=== PATIENT | female | born 1995 | race Caucasian/White ===

== ENCOUNTER 2021-10-29 02:38 | Emergency (ER) | payer OTHER ==
[~2021-10-29] VITALS: Ht 177.8 cm; Wt 78.2 kg
[~2021-10-29 02:38] MED LIST: AMOXICILLIN 50500 MG PO; BACTRIM DS 8001 TAB PO; BIRTH CONTROL PILLS; CEPHALEXIN500 M1 PO; MIRENA52 MG IY; NECON 1/50 0.051 TAB PO; NORCO 325 MG-51 TAB PO; PERCOCET 325 MG1 TA2 PO; PRENATAL1 TA1 PO; ULTRAM 50MG TAB50 MG PO; ZOFRAN 4MG T4 MG/TAB PO; [UNRECOGNIZED DRUG - OTHER]
[2021-10-29 03:01] VITALS: TEMP 98.2
[2021-10-29 03:07] LABS: COLLECTION METHOD CLEAN CATCH
[2021-10-29 03:14] LABS: MUCOUS Present (NOT PRESENT); PH 6 (5-8); SQUAMOUS EPITHELIAL 0-2 /hpf (0-10); URINE APPEARANCE Clear (CLEAR/HAZY); URINE BACTERIA None Seen /hpf (NONE SEEN); URINE BILIRUBIN Negative (NEGATIVE); URINE BLOOD Negative (NEGATIVE); URINE COLOR Straw (YELLOW); URINE GLUCOSE Negative (NEGATIVE); URINE KETONE Negative (NEGATIVE); URINE LEUKOCYTE ESTERASE Negative (NEGATIVE); URINE NITRATE Negative (NEGATIVE); URINE PROTEIN(semi-quant) Negative (NEGATIVE); URINE UROBILINOGEN Negative (NEGATIVE)
[2021-10-29 03:50] LABS: BASO # 0.1 K/mm3 (0.0-0.2); BASO % 0.5 % (0.0-2.0); EOS # 0.4 K/mm3 (0.0-0.7); EOS % 2.2 % (0.0-4.0); GRAN % 79.3 % (42.2-75.2); HEMOGLOBIN 12.5 g/dl (12.5-16.0); LYMPH # 1.8 K/mm3 (1.2-3.4); LYMPH % 10.9 % (20.0-51.0); MEAN CELL VOLUME 88 fl (80.0-100.0); MEAN CORPUSCULAR HEMOGLOBIN 30 pg (27-31); MEAN CORPUSCULAR HGB CONC 34 g/dl (33.0-37.0); MEAN PLATELET VOLUME 10.2 fl (7.4-10.4); MONO # 1.1 K/mm3 (0.1-0.6); MONO % 6.6 % (1.7-9.3); PLATELET COUNT 272 K/mm3 (130-400); RED BLOOD COUNT 4.21 M/mm3 (4.10-5.30); REDCELL DISTRIBUTION WIDTH-CV 13.1 % (11.5-14.5)
[2021-10-29 04:09] LABS: ALANINE AMINOTRANSFERASE 7 U/L (0-55); ALBUMIN 3.3 gm/dL (3.5-5.0); ALKALINE PHOSPHATASE 52 U/L (40-150); ANION GAP 11 mmol/L (7-16); AST,SGOT 12 U/L (5-34); BILIRUBIN,TOTAL 0.4 mg/dL (0.2-1.2); BLOOD UREA NITROGEN 9 mg/dL (7-19); CALCIUM 8.7 mg/dL (8.4-10.2); CARBON DIOXIDE 21 mmol/L (22-29); CHLORIDE 108 mmol/L (98-107); CREATININE, serum 0.75 mg/dL (0.57-1.11); GLUCOSE 101 mg/dL (70-99); LIPASE < 10 U/L (8-78); POTASSIUM 3.7 mmol/L (3.5-4.5); SODIUM 140 mmol/L (136-145); TOTAL PROTEIN 6.8 gm/dL (6.2-8.1)
[2021-10-29 04:18] LABS: HEMATOCRIT 36.9 % (37.0-47.0)
[2021-10-29] MEDS ORDERED: DOXYCYCLINE 10100 MG PO ×3 (05:23→05:42)
[2021-10-29] MEDS ORDERED: ULTRAM 50MG TAB50 MG PO ×2 (05:23)
[2021-10-29] MEDS ORDERED: OXY IR5 MG PO ×3 (05:28→05:42)
[2021-10-29 05:55] VITALS: BP 120/62; PULSE 80
== END 2021-10-29 06:00 | disposition home or self-care (01) ==
LOC: COL.ER 02:38
PROVIDERS: Emergency Medicine
DX: N73.0 Acute parametritis and pelvic cellulitis (principal); N70.11 Chronic salpingitis; D72.829 Elevated white blood cell count, unspecified; Z88.5 Allergy status to narcotic agent; Z32.02 Encounter for pregnancy test, result negative
CPT/HCPCS: J0696; J2405; J7030; Q9967

== ENCOUNTER 2021-11-02 12:03 | Observation (INO) | payer OTHER ==
[~2021-11-02 12:03] MED LIST changes: +DOXYCYCLINE 10100 MG PO; +OXY IR5 MG PO
--- NOTE | 2021-11-02 13:07 | NUR ---
1232 PT AMBULATED TO ROOM FROM ADMISSIONS. ORIENTED TO ROOM. CALL LIGHT WITHIN REACH. VITALS TAKEN AT THIS TIME. PT COMPLAINS OF 8/10 PAIN ON RIGHT SIDE DIAPHRAM AND 5/10 PAIN IN PELVIS. PT STATES SHE HAS NOT HAD LUNCH YET, BUT NOT THAT HUNGRY. HAS BEEN NAUSEATED, ASKING FOR ZOFRAN BEFORE TRYING TO EAT.
[2021-11-02 13:15] VITALS: BP 135/77; PULSE 70; TEMP 97.9
[2021-11-02 14:08] LABS: BASO # 0.1 K/mm3 (0.0-0.2); BASO % 0.8 % (0.0-2.0); EOS # 0.4 K/mm3 (0.0-0.7); EOS % 2.9 % (0.0-4.0); GRAN # 10.5 K/mm3 (1.4-6.5); GRAN % 73.3 % (42.2-75.2); HEMATOCRIT 39.3 % (37.0-47.0); HEMOGLOBIN 13.3 g/dl (12.5-16.0); LYMPH # 2.4 K/mm3 (1.2-3.4); MEAN CELL VOLUME 87 fl (80.0-100.0); MEAN CORPUSCULAR HEMOGLOBIN 29 pg (27-31); MEAN CORPUSCULAR HGB CONC 34 g/dl (33.0-37.0); MEAN PLATELET VOLUME 10.5 fl (7.4-10.4); MONO # 0.7 K/mm3 (0.1-0.6); MONO % 5.1 % (1.7-9.3); PLATELET COUNT 336 K/mm3 (130-400); RED BLOOD COUNT 4.52 M/mm3 (4.10-5.30); REDCELL DISTRIBUTION WIDTH-CV 13.3 % (11.5-14.5)
[2021-11-02 17:16] VITALS: BP 124/67; PULSE 67; TEMP 98.4
--- NOTE | 2021-11-02 17:25 | NUR ---
1720 PATIENT FEELING BETTER BUT STILL NAUSEA
[2021-11-02 19:30] VITALS: BP 112/76; PULSE 75; TEMP 98.4
[2021-11-02 23:30] VITALS: BP 95/52; PULSE 54; TEMP 98.6
[2021-11-03 05:30] VITALS: BP 101/53; PULSE 63; TEMP 97.6
[2021-11-03 07:15] VITALS: BP 97/50; PULSE 62; TEMP 98.1
[2021-11-03] MEDS ORDERED: IBU600 MG PO (09:00)
[2021-11-03] MEDS ORDERED: ZOFRAN 4MG T4 MG/TAB PO (09:02)
--- NOTE | 2021-11-03 10:17 | NUR ---
Initial visit attempt; Family resting, [employer] left card offering God's blessings and information regarding the availability of Spiritual Care at [facility].
[2021-11-03 11:41] VITALS: BP 105/62; PULSE 60; TEMP 97.9
[2021-11-04] MEDS ORDERED: DOXYCYCLINE 10100 MG PO (13:00)
[2021-11-04] MEDS ORDERED: OXY IR5 MG PO (13:01)
== END 2021-11-03 14:45 | disposition home or self-care (01) ==
LOC: EUO 12:03 → EDSTATUS 12:04 → OB 12:14
PROVIDERS: ADMIT Obstetrics & Gynecology
DX: N70.01 Acute salpingitis (principal); A54.85 Gonococcal peritonitis; N80.9 Endometriosis, unspecified; D68.2 Hereditary deficiency of other clotting factors; K85.80 Other acute pancreatitis without necrosis or infection; F17.210 Nicotine dependence, cigarettes, uncomplicated; Z79.899 Other long term (current) drug therapy; Z83.3 Family history of diabetes mellitus
CPT/HCPCS: G0378; J0696; J2405; J7120

== ENCOUNTER 2021-11-04 12:21 | Outpatient (RCR) | payer OTHER ==
[~2021-11-04] VITALS: Ht 177.8 cm; Wt 80.9 kg
[~2021-11-04 12:21] MED LIST changes: +IBU600 MG PO
[2021-11-04] MEDS ORDERED: DOXYCYCLINE 10100 MG PO (13:00)
[2021-11-04] MEDS ORDERED: OXY IR5 MG PO (13:01)
[2021-11-04 13:13] VITALS: BP 119/78; PULSE 76; TEMP 97
== END 2021-11-04 18:13 | disposition home or self-care (01) ==
LOC: EUO 12:21
DX: N73.9 Female pelvic inflammatory disease, unspecified (principal)
CPT/HCPCS: J0696